=== PATIENT | male | born 1980 | race Caucasian/White ===

== ENCOUNTER 2018-03-26 12:49 | Emergency (ER) | payer MEDICAID, SELFPAY ==
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
[2018-03-26 13:09] VITALS: BP 105/69; PULSE 83; RESP 18; TEMP 37.1; O2SAT 98
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
--- NOTE | 2018-03-26 13:42 | NUR.NOTE ---
I/D area cleansed with saline, area dressed with 4x4 dsd Nursing Note:
== END 2018-03-26 13:40 | disposition home or self-care (01) ==
PROVIDERS: Emergency Provider Emergency Medicine; PCP Physician Assistant
DX: L02.211 Cutaneous abscess of abdominal wall (principal)
CPT/HCPCS: 10060

== ENCOUNTER 2018-12-31 18:07 | Outpatient (REF) | payer MEDICAID, SELFPAY ==
[2018-12-31 20:12] LABS: HCT 44.9 % (40.0-50.0); HGB 15.6 g/dL (13.5-17.5); Mean Corp. HGB Concentration 34.7 g/dL (32.0-36.0); Mean Corpuscular Hemoglobin 30.4 pg (27.0-33.0); Mean Corpuscular Volume 87.5 fL (80-95); Mean Platelet Volume 9.7 fL (8.0-11.0); Platelet Count 314 x1000/uL (130-400); RBC 5.13 m/cumm (4.50-6.00); RBC Distribution Width 11.9 % (11.8-14.1); White Blood Cell Count 9.86 k/cumm (4.4-10.8)
[2018-12-31 20:33] LABS: ALT 115 U/L (16-63); AST 45 U/L (15-37); Alkaline Phosphatase 60 U/L (46-116); Anion Gap 6.9 mmol/L (3-11); BUN 15 mg/dL (7-18); Bilirubin, Total 1.5 mg/dL (0.2-1.0); CO2 32.1 mmol/L (21.0-32.0); CREATININE 1.01 mg/dL (0.70-1.30); Calcium 9.1 mg/dL (8.5-10.1); Chloride 101 mmol/L (98-107); Glucose 91 mg/dL (70-100); Potassium 3.8 mmol/L (3.5-5.1); Sodium 140 mmol/L (136-145); TSH 2.03 uIU/mL (0.36-3.74); Total Protein 7.6 g/dL (6.4-8.2)
[2019-01-02 14:12] LABS: HIV-1/2 Ag & Ab Screen Negative (NEGAT)
[2019-01-02 15:07] LABS: HBs Antibody, Quant <3.1 mIU/mL; Hepatitis B Surface Ab Negative
[2019-01-05 16:27] LABS: Hepatitis C Ab w Rflx HCV PCR Reactive (NEGAT)
== END 2018-12-31 18:27 ==
LOC: NCHCN 18:07
PROVIDERS: PCP Physician Assistant; Visit Provider Internal Medicine
DX: R63.4 Abnormal weight loss (principal); K59.09 Other constipation; R10.11 Right upper quadrant pain; F11.20 Opioid dependence, uncomplicated; Z11.4 Encounter for screening for human immunodeficiency virus [HIV]; Z11.59 Encounter for screening for other viral diseases
CPT/HCPCS: 80053; 85027; 86706; 86803; 87389; 84443; 87522

== ENCOUNTER 2019-04-08 19:19 | Outpatient (REF) | payer MEDICAID, SELFPAY ==
[2019-04-11 09:25] LABS: HCV Genotype 1a (Undetected)
== END 2019-04-08 19:39 ==
LOC: NCHCN 19:19
PROVIDERS: PCP Physician Assistant; Visit Provider Internal Medicine
DX: B19.20 Unspecified viral hepatitis C without hepatic coma (principal)
CPT/HCPCS: 87521; 87522

== ENCOUNTER 2019-07-09 14:28 | Outpatient (REF) | payer MEDICAID, SELFPAY ==
[2019-07-13 09:35] LABS: Hepatitis B Surface Ag Negative (Negative)
== END 2019-07-09 14:48 ==
LOC: NCHCN 14:28
PROVIDERS: PCP Physician Assistant; Visit Provider Internal Medicine
DX: B18.2 Chronic viral hepatitis C (principal); Z79.899 Other long term (current) drug therapy
CPT/HCPCS: 87340

== ENCOUNTER 2020-11-29 16:10 | Emergency (ER) | payer MEDICAID, SELFPAY ==
[2020-11-29] VITALS (15 sets, daily range): BP systolic 99–129; BP diastolic 61–81; PULSE 61–88; RESP 12–26; O2SAT 100
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
[2020-11-29 16:33] LABS: Source Nasal/Nares
[2020-11-29] MEDS: ACETAMINOPHEN 1,000 MG/100 ML BTL 400 MG IVPB (16:37)
[2020-11-29] MEDS: Normal Saline 1,000 ML 1000 ML IV (16:40)
[2020-11-29 16:43] LABS: Abs Immature Grans 0.06 10^3/uL (0.0-0.06); Absolute Basophil Count 0.02 10^3/uL (0.0-0.2); Absolute Eosinophil Count 0.13 10^3/uL (0.0-0.7); Absolute Lymphocyte Count 1.62 10^3/uL (1.2-3.4); Absolute Monocyte Count 0.63 10^3/uL (0.1-0.8); Absolute Neutrophil Count 5.53 10^3/uL (1.2-6.7); Basophils % 0.3; Eosinophils % 1.6; HCT 39.6 % (40.0-50.0); HGB 13.6 g/dL (13.5-17.5); Immature Grans % 0.8; Lymphocytes % 20.3; MCH 29.4 pg (27.0-33.0); MCHC 34.3 % (32.0-36.0); MCV 85.5 fL (80-95); MPV 8.5 fL (8.0-11.0); Monocytes % 7.9; Neutrophils % 69.1; Nucleated RBC 0 %; Platelet Count 279 10^3/uL (130-400); RBC 4.63 10^6/uL (4.36-5.78); RDW 12.1 % (11.8-14.1); RDW-SD 37.5 fL; WBC 7.99 10^3/uL (4.4-10.8)
[2020-11-29 17:04] LABS: ALT 24 U/L (16-63); AST 14 U/L (15-37); Albumin 3.6 g/dL (3.4-5.0); Alkaline Phosphatase 87 U/L (46-116); Anion Gap 4.8 mmol/L (3-11); BUN 18 mg/dL (7-18); Bilirubin, Total 0.2 mg/dL (0.2-1.0); CO2 32.2 mmol/L (21.0-32.0); CREATININE 1.1 mg/dL (0.70-1.30); Chloride 104 mmol/L (98-107); Glucose 121 mg/dL (74-106); Potassium 3.5 mmol/L (3.5-5.1); Sodium 141 mmol/L (136-145); Total Protein 7.7 g/dL (6.4-8.2)
[2020-11-29 17:13] LABS: ETHANOL BLOOD < 3.0 mg/dL (<3)
[2020-11-29 17:26] LABS: COVID-19 PCR Negative (Negative)
[2020-11-29] MEDS: ceFAZolin 1 GM/50 ML BAG IVPB (17:42)
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
--- NOTE | 2020-11-29 18:15 | DI.CT_ITS ---
Exam(s) CT BRAIN NECK CTA EXAM: CT BRAIN NECK CTA CLINICAL HISTORY: c6 fracture. TECHNIQUE: Imaging Protocol: Axial CT angiography was performed with multi-slice acquisition and mu lti-planar and/or 3D reconstructions. CONTRAST MATERIAL: Intravenous: Omnipaque 350 Contrast volume:structured data in ml COMPARISON: CT CT THORACIC LUMBAR SPINE REC from 11/29/2020 FINDINGS: CTA Neck W: There is nondisplaced fracture left pars C6 level. Aortic arch anatomy: The aortic arch anatomy is conventional. No evidence of significant stenosis at the origin the great vessels off the aortic arch. No dissection. Anterior circulation: Both common carotid arteries ascend with normal luminal diameters. There is no stenosis at the carot id bifurcations and proximal internal carotid arteries. No dissection. Internal carotid arteries ar e patent in the upper neck and skull base. Posterior circulation: Both vertebral arteries originated conventional fashion off of the subclavian arteries and ascend wit h equal and normal luminal diameters in the foramen transverse area. No evidence of intraluminal thr ombus nor dissection. No abnormality at the left C6 level where there is a nondisplaced fracture. At the skull base both vertebral arteries are patent and both contribute to the formation basilar art vel. CTA Brain W: Anterior circulation: Internal carotid arteries are patent in the skull base and cavernous sinuses. Supraclinoid aspects a re patent and nonaneurysmal. Both middle cerebral arteries are patent out to the sylvian fissure bra nches. Both A1 segments are patent as are the anterior cerebral arteries. There is no evidence of a neurysm at the level of the anterior communicating artery. Posterior circulation: Basilar artery is formed at the skull base by both vertebral arteries and ascends in the midline with no intraluminal thrombus nor dissection. Distally it gives off patent superior cerebellar arteries and above this level terminates as patent left posterior cerebral artery. The right posterior cerebr al artery is fed by posterior communicating artery on the right side of the [id number]. There is no aneurysm of the tip of the basilar artery. CT BRAIN: There is no evidence of intracranial hemorrhage, mass effect, or shift of midline structures. There are no extra-axial fluid collections. Ventricles are not enlarged or shifted. There are no ring enh ancing lesions in the brain and no abnormal meningeal enhancement. IMPRESSION: 1. There is an acute nondisplaced fracture of the left C6 pars interarticularis. 2. No significant stenosis of the carotid and vertebral arteries in the neck. 3. No significant stenosis or occlusion of the intracranial arteries. No aneurysm seen. No evidence of intracranial hemorrhage. Opacification of the right maxillary sinus is noted. No obvious blowout fracture of the ipsilateral orbit. RADIATION DOSE DELIVERED: 1,356.25mGy.cm Total DLP DATA REPOSITORY: All CT scans at this facility are submitted to the National Radiology Data Registry (NRDR) Dose Index Registry (DIR) with the [employer] (ACR). RADIATION OPTIMIZATION: All CT scans at this facility use at least one of these dose optimization te chniques: automated exposure control; mA and/or kV adjustment per patient size (includes targeted exa ms where dose is matched to clinical indication); or iterative reconstruction.
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
[2020-11-29 18:30] LABS: Troponin I < 0.05 ng/mL (<0.06)
[2020-11-29] MEDS: Omnipaque 350 MG/ML 100 ML BTL IJ ×4 (18:32→20:05)
[2020-11-29] MEDS: Normal Saline - Diluent 50 ML VIAL IV ×2 (18:33→19:58)
[2020-11-29 19:25] LABS: Bilirubin Negative (Negative); Blood Negative (Negative); Clarity Clear (Clear); Glucose Negative (Negative); Ketones Negative (Negative); Leukocyte Esterase Negative (Negative); Nitrite Negative (Negative); Specific Gravity 1.015 (1.005-1.025); Urobilinogen 0.2 EU/dL (Up TO 0.2); pH 6.5 (5-8)
[2020-11-29 19:40] LABS: *AMPHETAMINES SCREEN URINE Negative (Negative); *BARBITURATES SCREEN URINE Negative (Negative); *BENZODIAZEPINES SCREEN URINE Negative (Negative); Cannabinoids THC Negative (Negative); Cocaine Screen,Urine Positive (Negative); METHADONE URINE SCREEN Positive (Negative); OPIATES URINE SCREEN Negative (Negative); Tricyclic Antidepressants Negative (Negative)
--- NOTE | 2020-11-29 20:22 | DI.VRAD_ITS ---
PROCEDURE INFORMATION: Exam: CT Angiography Head With Contrast, Arteriography Exam date and time: 11/29/2020 6:31 PM Age: 40 years old Clinical indication: Other: C6 fracture TECHNIQUE: Imaging protocol: Computed tomography angiography of the head with contrast. Exam focused on the arteries. 3D rendering (Not supervised by radiologist): MIP and/or 3D reconstructed images were created by the technologist. Contrast material: OMNIPAQUE 350; Contrast volume: 85 ml; Contrast route: INTRAVENOUS (IV); COMPARISON: CT HEAD CERVICAL SPINE WO 11/29/2020 5:18 PM FINDINGS: ANTERIOR CIRCULATION: Right internal carotid artery: Intracranial segment is patent with no evidence of hemodynamically significant stenosis. No aneurysm. Right middle cerebral artery: No occlusion or significant stenosis. No aneurysm. Right anterior cerebral artery: No occlusion or significant stenosis. No aneurysm. Left internal carotid artery: Intracranial segment is patent with no evidence of hemodynamically significant stenosis. No aneurysm. Left middle cerebral artery: No occlusion or significant stenosis. No aneurysm. Left anterior cerebral artery: No occlusion or significant stenosis. No aneurysm. POSTERIOR CIRCULATION: Right vertebral artery: No occlusion or significant stenosis. No aneurysm. Left vertebral artery: No occlusion or significant stenosis. No aneurysm. Basilar artery: No occlusion or significant stenosis. No aneurysm. Right posterior cerebral artery: Patent and type right posterior cerebral artery. Left posterior cerebral artery: No occlusion or significant stenosis. No aneurysm. IMPRESSION: No intracranial arterial occlusion or significant stenosis. PROCEDURE INFORMATION: Exam: CT Angiography Neck With Contrast Exam date and time: 11/29/2020 6:31 PM Age: 40 years old Clinical indication: Other: C6 fracture TECHNIQUE: Imaging protocol: Computed tomography angiography of the neck with contrast. 3D rendering (Not supervised by radiologist): MIP and/or 3D reconstructed images were created by the technologist. Radiation optimization: All CT scans at this facility use at least one of these dose optimization techniques: automated exposure control; mA and/or kV adjustment per patient size (includes targeted exams where dose is matched to clinical indication); or iterative reconstruction. Contrast material: OMNIPAQUE 350; Contrast volume: 85 ml; Contrast route: INTRAVENOUS (IV); COMPARISON: CT HEAD CERVICAL SPINE WO 11/29/2020 5:18 PM FINDINGS: Right common carotid artery: No significant stenosis. No dissection or occlusion. Right internal carotid artery: Extracranial segment is patent with no significant stenosis (0% stenosis by NASCET criteria). No dissection or occlusion. Right external carotid artery: No occlusion or significant stenosis. Left common carotid artery: No significant stenosis. No dissection or occlusion. Left internal carotid artery: Extracranial segment is patent with no significant stenosis (0% stenosis by NASCET criteria). No dissection or occlusion. Left external carotid artery: No occlusion or significant stenosis. Right vertebral artery: No significant stenosis. No dissection or occlusion. Left vertebral artery: No significant stenosis. No dissection or occlusion. Soft tissues: Unremarkable. Bones/joints: Redemonstration of acute fracture of the left C6 pars interarticularis. IMPRESSION: 1. No occlusion or significant stenosis in the arteries of the neck. 2. Redemonstration of acute fracture of the left C6 pars interarticularis. REFERENCES: NASCET CRITERIA. The degree of internal carotid artery stenosis is based on NASCET criteria. Normal is no stenosis. Mild is less than 50% stenosis. Moderate is 50-69% stenosis. Severe is 70% to 99% stenosis. Total occlusion is no detectable patent lumen. Dictated and Authenticated by: Chaz Salgado MD. Ordering:TRINY Hopkins MD
== END 2020-11-29 20:55 | disposition short-term general hospital (02) ==
PROVIDERS: Emergency Provider Physician Assistant; PCP Physician Assistant
DX: S12.591A Other nondisplaced fracture of sixth cervical vertebra, initial encounter for closed fracture (principal); S22.21XA Fracture of manubrium, initial encounter for closed fracture; S62.501B Fracture of unspecified phalanx of right thumb, initial encounter for open fracture; V89.2XXA Person injured in unspecified motor-vehicle accident, traffic, initial encounter
CPT/HCPCS: 12001; 70496; 70498; 74177; 80053; 80307; 86850; 86900; 86901; 87635; 90471; 93005; 96361; 96365; 96375; 99291; 70450; 71260; 72125; 73130; 80320; 81003; 84484; 85025; 93010; J0131; J0690; J3490

== ENCOUNTER 2021-06-19 21:16 | Outpatient (REF) | payer MEDICAID, SELFPAY ==
[2021-06-19 19:30] LABS: Bacteria Rare HPF (Negative); C & S Indicated? C&S Done As Ordered; Casts Negative LPF (Negative); Crystals Negative HPF (Negative); Epithelial Cells Rare HPF (Negative); Mucus Trace (Negative); WBC 0-2 HPF (0-5)
== END 2021-06-19 21:17 | disposition home or self-care (01) ==
LOC: NCHCN 21:16
PROVIDERS: PCP Physician Assistant; Visit Provider Physician Assistant
DX: R31.9 Hematuria, unspecified (principal)
CPT/HCPCS: 81015; 87086

== ENCOUNTER 2022-06-06 15:02 | Emergency (ER) | payer MEDICAID, SELFPAY ==
[2022-06-06 15:07] VITALS: BP 106/84; PULSE 110; RESP 18; TEMP 36.8; O2SAT 97
--- NOTE | 2022-06-06 15:41 | W.ED.GENAD ---
Discharge Plan Disposition Patient Disposition: Home Discharge Details Clinical Impression: Pain, dental Primary Care Provider: Bartolome Portillo ED Provider: Kellie Treviño Home Meds and New Rx's Prescriptions: New clindamycin HCl 150 mg capsule 450 mg PO TID Qty: 90 0RF Continued buprenorphine-naloxone [Suboxone] 8-2 mg Film 1 film BUCCAL DAILY Patient Comments: not taking Discontinued sulfamethoxazole-trimethoprim [Bactrim DS] 800-160 mg tablet 1 tab PO Q12H Qty: 10 0RF Patient Comments: not taking Discharge Instructions Instructions: Toothache (ED) Additional Instructions: take antibiotics as prescribed motrin/tylenol as needed for pain call [facility] to schedule dental appt return earlier with new or worsening complaints Discharge Data Discharge Date/Time-TO BE ENTERED AT DEPARTURE: 06/06/22 15:48 Medical Decision Making Patient presents with ear and dental pain, evidence of possible dental abscess on clinical exam Placed on clindamycin Ibuprofen and Tylenol We will follow-up with his dentist and that upon to Return precautions reviewed and patient expressed understanding No clinical evidence of Rodger's angina HPI General Date/Time Provider Initiated Documentation: 06/06/22 15:32. HPI Narrative: This 42-year-old male presents with right ear and dental pain. States it started approximately 48 hours ago. Denies swelling to the right side of his face. Denies any chest pain or shortness of breath. Denies any headache or difficulty swallowing. Denies fever or chills. Related Data Home Medications Medication Instructions Recorded Confirmed buprenorphine 8 mg-naloxone 2 mg 1 film buccal DAILY 03/26/18 03/26/18 sublingual film (Suboxone) clindamycin HCl 150 mg capsule 450 mg PO TID #90 caps 06/06/22 Previous Rx's Medication Instructions Recorded clindamycin HCl 150 mg capsule 450 mg PO TID #90 caps 06/06/22 Allergies Allergy/AdvReac Type Severity Reaction Status Date / Time No Known Allergies Allergy Unverified 06/06/22 15:07 General Stated Complaint: EarProblem RONNA: 4 PFSH All Active Problems (Updated 06/06/22 @ 15:45 by ALICIA Mackenzie) C6 cervical fracture (Acute) Sternal fracture (Acute) Open fracture of right thumb (Acute) Pain, dental (Acute) Social History Smoking/Tobacco Use Status: Current every day Smoking risk assessment performed?: Yes Alcohol Intake: never Drug use: Current Sobriety Substance use type: does not use Do you feel safe at home: Yes Do you feel safe in your relationship?: Yes Exam Const Other: Patient appears well, he has no evidence of otitis media or otitis externa clinically, pupils equal round reactive to light and accommodation, widespread dental decay with #3 tenderness and avulsed tooth noted, no fluctuance or evidence of deep space infection, uvula midline, no trismus, no maxillary swelling, no drainage Course Vital Signs Vital signs: Vital Signs Temperature 36.8 C 06/06/22 15:07 Pulse 110 H 06/06/22 15:07 Respiratory Rate 18 06/06/22 15:07 Blood Pressure 106/84 06/06/22 15:07 Pulse Oximetry 97 06/06/22 15:07 Temperature 36.8 C 06/06/22 15:07 Temperature Source Tympanic 06/06/22 15:07 Pulse 110 H 06/06/22 15:07 Respiratory Rate 18 06/06/22 15:07 Respiratory Effort Normal, Non-Labored 06/06/22 15:07 Blood Pressure 106/84 06/06/22 15:07 Pulse Oximetry 97 06/06/22 15:07 Oxygen Delivery Method Room Air 06/06/22 15:07 Oxygen Flow Rate 0 06/06/22 15:07
== END 2022-06-06 15:48 | disposition home or self-care (01) ==
PROVIDERS: Emergency Provider Physician Assistant; PCP Internal Medicine
DX: K08.89 Other specified disorders of teeth and supporting structures (principal); H92.01 Otalgia, right ear
CPT/HCPCS: 99283; 99284

== ENCOUNTER 2023-06-12 17:59 | Outpatient (REF) | payer MEDICAID, SELFPAY ==
[2023-06-12 20:25] LABS: Abs Immature Grans 0.04 10^3/uL (0.0-0.06); Absolute Basophil Count 0.03 10^3/uL (0.0-0.2); Absolute Eosinophil Count 0.02 10^3/uL (0.0-0.7); Absolute Lymphocyte Count 2.29 10^3/uL (1.2-3.4); Absolute Monocyte Count 0.98 10^3/uL (0.1-0.8); Absolute Neutrophil Count 8.16 10^3/uL (1.2-6.7); Basophils % 0.3; Eosinophils % 0.2; HCT 47.3 % (40.0-50.0); HGB 15.9 g/dL (13.5-17.5); Immature Grans % 0.3; Lymphocytes % 19.9; MCH 29.7 pg (27.0-33.0); MCHC 33.6 % (32.0-36.0); MCV 88 fL (80-95); MPV 9.2 fL (8.0-11.0); Monocytes % 8.5; Neutrophils % 70.8; Platelet Count 564 10^3/uL (130-400); RBC 5.35 10^6/uL (4.36-5.78); RDW 11.7 % (11.8-14.1); RDW-SD 37.7 fL; WBC 11.53 10^3/uL (4.4-10.8)
[2023-06-12 20:43] LABS: ALT 23 U/L (16-63); AST 30 U/L (15-37); Albumin 4.3 g/dL (3.4-5.0); Alkaline Phosphatase 66 U/L (46-116); BUN 20 mg/dL (7-18); Bilirubin, Total 0.8 mg/dL (0.2-1.0); Calcium 10.1 mg/dL (8.5-10.1); Chloride 103 mmol/L (98-107); Estimated GFR 95.18 (mL/min/1.73m2); Glucose 114 mg/dL (74-106); Potassium 4.3 mmol/L (3.5-5.1); Sodium 142 mmol/L (136-145); Total Protein 8.9 g/dL (6.4-8.2)
[2023-06-13 18:26] LABS: HBs Antibody, Quant <3.1 mIU/mL (See Note); Hepatitis B Surface Ab Negative (See Note)
[2023-06-13 18:36] LABS: Hepatitis B Surface Ag Negative (Negative)
[2023-06-13 19:06] LABS: Hep B Core Antibody Negative (Negative)
[2023-06-13 19:11] LABS: HIV-1/2 Ag & Ab Screen Negative (Negative); Hep A Total Ab w Rflx IgM Negative (Negative)
[2023-06-14 10:56] LABS: HCV RNA Qualitative Undetected (Undetected)
[2023-06-17 19:44] LABS: HCV Genotype Undetected (Undetected)
== END 2023-06-12 18:00 | disposition home or self-care (01) ==
LOC: LBN 17:59
PROVIDERS: PCP Internal Medicine; Visit Provider Nurse Practitioner
DX: F11.20 Opioid dependence, uncomplicated (principal)
CPT/HCPCS: 80053; 86704; 86706; 86709; 87340; 87389; 87522; 85025; 87521